=== PATIENT | male | born 1950 | race Caucasian/White ===

== ENCOUNTER → 2017-04-13 | Outpatient (CLI) | payer MEDICARE, OTHER ==
[~2017-04-13] MED LIST: ACE3 PO; ALB0.5 INH; ALB18R INH; ALBU8.5H11 INH; ANTIDEPRESSANT; ASPI-719 PO; ASPI-757 PO; BUDE10.2 IH; BUDE10.2 INH; CEP500 PO; IPRA3AMP36 IH; MAX75 PO; MAXIDE; NAP500; OXYC-865 PO; PER PO; PRE20 PO; SERT-179 PO; THEO600T4 PO; VENL-1 PO; [UNRECOGNIZED DRUG - CODE] PO
--- NOTE | 2017-04-13 14:16 | RADIOLOGY IMAGING REPORT ---
FACILITY: [facility] - [place] PATIENT NAME: Popeye Preciado : 1950 MR: [id number] V: [id number] EXAM DATE: [id number] ORDERING PHYSICIAN: RODERICK LEONARD TECHNOLOGIST: Location: [facility] [place] Patient: Popeye Preciado : 1950 Visit/Account:[id number] Date of Sevice: 04/13/2017 Exam type: CHEST PA AND LAT History: Asthma, COPD, shortness of breath Comparison: December 05, 2016. Findings: Again noted is hyperinflation of the lungs with chronic pleural parenchymal scarring most prominent o juhi the right thorax. No acute areas of pulmonary consolidation are seen. The cardiac silhouette is normal in size. 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 Numerous old bilateral ri b fractures are again seen. Incompletely imaged are postsurgical changes of the lower cervical spine IMPRESSION: 1. No acute cardiopulmonary process is seen Hyperinflation of the lungs and chronic pleural parenchymal scarring most prominent over the right th orax appears stable Report Dictated By: Yuki Rodriges MD at 04/13/2017 2:09 PM Report E-Signed By: Yuki Rodriges MD at 04/13/2017 2:12 PM WSN:[email or web address]
== END ==
LOC: RAD 11:29
PROVIDERS: ATTEND Nurse Practitioner Family
DX: R91.8 Other nonspecific abnormal finding of lung field (principal)
CPT/HCPCS: 71046

== ENCOUNTER → 2017-04-29 | Outpatient (CLI) | payer MEDICARE, OTHER ==
[2017-04-29 13:26] LABS: PLATELET COUNT, AUTOMATED 257 K/uL (150-450)
== END ==
LOC: LAB 13:10
PROVIDERS: ATTEND Nurse Practitioner Family
DX: I10 Essential (primary) hypertension (principal); J44.9 Chronic obstructive pulmonary disease, unspecified; J45.909 Unspecified asthma, uncomplicated; R53.83 Other fatigue
CPT/HCPCS: 36415; 82040; 82247; 82310; 82374; 82435; 82565; 82947; 84075; 84132; 84155; 84295; 84443; 84450; 84460; 84520; 85025

== ENCOUNTER → 2017-06-11 | Outpatient (CLI) | payer MEDICARE, OTHER | LOC: LAB 10:36 | PROVIDERS: ATTEND Nurse Practitioner Family | DX: I10 Essential (primary) hypertension (principal); J44.9 Chronic obstructive pulmonary disease, unspecified; E87.6 Hypokalemia | CPT/HCPCS: 36415; 82040; 82247; 82310; 82374; 82435; 82565; 82947; 84075; 84132; 84155; 84295; 84450; 84460; 84520 ==

== ENCOUNTER → 2017-06-18 | Outpatient (CLI) | payer MEDICARE, OTHER ==
[~2017-06-18] MED LIST changes: +ALBU8.5H IH; +BARIUM SULFATE 176 GM BTL PO ONE; +BARIUM SULFATE 340 GM POWD ONE; +MULT-67; +POTA-28 PO; +TIO18R INH
--- NOTE | 2017-06-18 15:36 | RADIOLOGY IMAGING REPORT ---
FACILITY: [facility] PATIENT NAME: Popeye Preciado : 1950 MR: [id number] V: [id number] EXAM DATE: ORDERING PHYSICIAN: AMY FERNANDO TECHNOLOGIST: Location: [facility] Patient: Popeye Preciado : 1950 Visit/Account:[id number] Date of Sevice: 06/18/2017 Exam type: ESOPHAGRAM History: Pharyngoesophageal dysphasia Comparison: None. Findings: Double contrast esophagram was performed with thick and thin barium. Multiple fluoroscopic spot imag es of the hypopharynx, cervical and thoracic portion the esophagus and gastroesophageal junction were performed. There was laryngeal penetration with a small amount of endotracheal aspiration of the ba rium. When asked if the patient needed to cough he stated no . There is a small hiatal hernia with a large amount of gastroesophageal reflux. No mucosal erosion or significant esophageal narrowing wa s identified. The fluoroscopy dose area product was 322.51 micro-Cuenca per meter squared IMPRESSION: 1. Small hiatal hernia with a large amount of gastric esophageal reflux No mucosal erosion or significant esophageal narrowing was identified There was a small amount of laryngeal penetration and endotracheal aspiration of the barium. When I asked the patient if he needed to cough he stated no. A modified barium swallow with speech patholog y may be helpful Report Dictated By: Yuki Rodriges MD at 06/18/2017 3:21 PM Report E-Signed By: Yuki Rodriges MD at 06/18/2017 3:32 PM WSN:[email or web address]
== END ==
LOC: RAD 01:20
PROVIDERS: ATTEND Otolaryngology
DX: K44.9 Diaphragmatic hernia without obstruction or gangrene (principal)
CPT/HCPCS: 74220

== ENCOUNTER → 2018-04-01 | Outpatient (CLI) | payer MEDICARE, OTHER ==
[~2018-04-01] MED LIST changes: -BARIUM SULFATE 176 GM BTL PO ONE; -BARIUM SULFATE 340 GM POWD ONE; +OMEP40CA48 PO
[2018-04-01 12:30] LABS: PLATELET COUNT, AUTOMATED 225 K/uL (150-450)
[2018-04-01 12:39] LABS: LDL CHOLESTEROL 128 mg/dl
== END ==
LOC: LAB 11:59
PROVIDERS: ATTEND Nurse Practitioner Family
DX: I10 Essential (primary) hypertension (principal); R53.83 Other fatigue; J45.909 Unspecified asthma, uncomplicated; E78.5 Hyperlipidemia, unspecified; E66.9 Obesity, unspecified; R35.1 Nocturia
CPT/HCPCS: 36415; 82040; 82247; 82310; 82374; 82435; 82465; 82565; 82947; 83718; 84075; 84132; 84153; 84155; 84295; 84450; 84460; 84478; 84520; 85025

== ENCOUNTER → 2018-05-17 | Outpatient (CLI) | payer MEDICARE, OTHER | LOC: LAB 09:43 | PROVIDERS: ATTEND Internal Medicine | DX: D64.9 Anemia, unspecified (principal) | CPT/HCPCS: 36415; 82607; 82728; 82746; 83550 ==